=== PATIENT | male | born 1960 | race Caucasian/White ===

== ENCOUNTER 2018-05-02 10:53 | Emergency (ER) | payer MEDICAID ==
[~2018-05-02] VITALS: Ht 170.2 cm; Wt 83.9 kg
[2018-05-02 10:57] VITALS: Ht 170.2 cm; Wt 83.9 kg
[2018-05-02 11:59] VITALS: BP 158/105
== END 2018-05-02 12:01 | disposition home or self-care (01) ==
LOC: ED 10:53
DX: S11.91XA Laceration without foreign body of unspecified part of neck, initial encounter (principal); X58.XXXA Exposure to other specified factors, initial encounter; Y93.89 Activity, other specified; Y92.89 Other specified places as the place of occurrence of the external cause; Y99.8 Other external cause status
CPT/HCPCS: J0696; J3010; J3490; J7030; Q0092

== ENCOUNTER 2019-09-13 00:27 | Emergency (ER) | payer MEDICAID ==
[~2019-09-13] VITALS: Ht 170.2 cm; Wt 93.7 kg
[2019-09-13 01:01] VITALS: Ht 170.2 cm; Wt 93.7 kg
[2019-09-13 06:03] VITALS: BP 148/67
== END 2019-09-13 06:03 | disposition home or self-care (01) ==
LOC: ED 00:27
DX: S06.0X9A Concussion with loss of consciousness of unspecified duration, initial encounter (principal); S50.02XA Contusion of left elbow, initial encounter; I10 Essential (primary) hypertension; V19.9XXA Pedal cyclist (driver) (passenger) injured in unspecified traffic accident, initial encounter; Y93.I9 Activity, other involving external motion; Y92.413 State road as the place of occurrence of the external cause; Y99.8 Other external cause status
CPT/HCPCS: Q0092; Q0162

== ENCOUNTER 2019-10-24 01:06 | Emergency (ER) | payer MEDICAID ==
[~2019-10-24] VITALS: Ht 170.2 cm; Wt 94.8 kg
[2019-10-24 01:20] VITALS: Ht 170.2 cm; Wt 94.8 kg
[2019-10-24 05:37] VITALS: BP 124/81
== END 2019-10-24 05:37 | disposition home or self-care (01) ==
LOC: ED 01:06
DX: M70.32 Other bursitis of elbow, left elbow (principal); R07.81 Pleurodynia; I10 Essential (primary) hypertension; Y93.89 Activity, other specified
CPT/HCPCS: J1885

== ENCOUNTER 2020-10-08 13:37 | Emergency (ER) | payer MEDICAID ==
[~2020-10-08] VITALS: Ht 170.2 cm; Wt 87.1 kg
[2020-10-08 13:46] VITALS: Ht 170.2 cm; Wt 87.1 kg
[2020-10-08 15:50] VITALS: BP 142/80
== END 2020-10-08 15:50 | disposition home or self-care (01) ==
LOC: ED 13:37
DX: L02.413 Cutaneous abscess of right upper limb (principal); F17.210 Nicotine dependence, cigarettes, uncomplicated
CPT/HCPCS: J0696; J2001

== ENCOUNTER 2020-11-29 00:02 | Emergency (ER) | payer MEDICAID ==
[~2020-11-29] VITALS: Ht 170.2 cm; Wt 87.5 kg
[2020-11-29 00:10] VITALS: Ht 170.2 cm; Wt 87.5 kg
[2020-11-29] MEDS ORDERED: BACTRIM DS1 TAB PO (01:18)
[2020-11-29] MEDS ORDERED: IBU600 M2 PO (01:19)
[2020-11-29 01:33] VITALS: BP 122/69
== END 2020-11-29 01:33 | disposition home or self-care (01) ==
LOC: ED 00:02
DX: L02.414 Cutaneous abscess of left upper limb (principal); L02.416 Cutaneous abscess of left lower limb; I10 Essential (primary) hypertension
CPT/HCPCS: J2001